=== PATIENT | female | born 1995 | race Caucasian/White ===

== ENCOUNTER → 2018-10-08 16:54 | Outpatient (CLI) | payer MEDICAID, SELFPAY | PROVIDERS: Visit Provider Nurse Practitioner Family | DX: R31.9 Hematuria, unspecified (principal) | CPT/HCPCS: 87086 ==

== ENCOUNTER → 2018-10-13 13:53 | Outpatient (CLI) | payer MEDICAID, SELFPAY ==
[2018-10-13 14:43] LABS: Basophils # 0.1 K/mm3 (0-0.2); Basophils % 1.1 % (0.1-2.0); Eosinophils # 0.3 K/mm3 (0.0-0.4); Eosinophils % 3.1 % (0.1-12.0); Hematocrit 43.2 % (37.0-47.0); Hemoglobin 14.6 g/dL (12.2-16.2); Lymphocytes % 37.4 % (10-50); Mean Corpuscular HGB Conc 33.7 g/dL (31.8-35.4); Mean Corpuscular Hemoglobin 28.1 pg (27.0-31.2); Mean Corpuscular Volume 83.4 fl (81-99); Mean Platelet Volume 7.6 fl (7.4-10.4); Monocytes # 0.6 K/mm3 (0.1-1.0); Monocytes % 7.3 % (1.7-9.3); Neutrophils # 4.1 K/mm3 (1.8-7.8); Neutrophils % 51.1 % (37.0-80.0); Platelet Count 263 K/mm3 (142-424); Red Blood Count 5.19 M/mm3 (4.20-5.40); Red Cell Distribution Width 13.8 % (11.5-17.5); White Blood Count 8.1 K/mm3 (4.8-10.8)
[2018-10-13 15:31] LABS: Alanine Aminotransferase 26 U/L (12-78); Albumin Level 3.6 gm/dL (3.4-5.0); Alkaline Phosphatase 72 U/L (46-116); Anion Gap 13.1 mEq/L (5-15); Aspartate Amino Transferase 16 U/L (15-37); Bilirubin,Total 0.2 mg/dL (0.2-1.0); Blood Urea Nitrogen 16 mg/dL (7-18); Calcium 9.3 mg/dL (8.5-10.1); Carbon Dioxide 29 mmol/L (21.0-32.0); Chloride 101 mmol/L (98-107); Chol/HDL Ratio 4.8 (1-3.5); Cholesterol 124 mg/dL (140-200); Creatinine,Serum 1.09 mg/dL (0.55-1.02); Estimated Glomerular Filt Rate 62 ml/min (>60); GFR (African American) 75 ML/MIN (>60); Globulin 3.6 gm/dl (1.3-3.2); Glucose 81 mg/dL (74-106); HDL Cholesterol 26 mg/dL (29-89); LDL Cholesterol 60 mg/dL (0-130); Potassium 4.1 mmoL/L (3.5-5.1); Sodium 139 mmol/L (136-145); T4 (Thyroxine) 10.2 ug/dl (4.7-13.3); Thyroid Stimulating Hormone 1.23 uIU/ml (0.358-3.740); Total Protein,Serum 7.2 gm/dL (6.4-8.2); Triglycerides 191 mg/dL (30-200); VLDL Cholesterol 38 mg/dL (0-40)
[2018-10-15 09:17] LABS: Hep A Ab, IgM Negative (Negative); Hepatitis B Core Antibody IgM Negative (Negative); Hepatitis B Surface Antigen Negative (Negative)
[2018-10-15 12:43] LABS: Hepatitis C Antibody <0.1 s/co ratio (0.0-0.9); Vitamin D 25 Hydroxy 27.4 ng/mL (30.0-100.0)
== END ==
PROVIDERS: Visit Provider Nurse Practitioner Family
DX: N39.0 Urinary tract infection, site not specified (principal); Z13.220 Encounter for screening for lipoid disorders; R53.1 Weakness; Z87.898 Personal history of other specified conditions; E66.9 Obesity, unspecified; E55.9 Vitamin D deficiency, unspecified
CPT/HCPCS: 36415; 80053; 80061; 80074; 82652; 84436; 84443; 85025

== ENCOUNTER 2018-10-23 10:54 | Outpatient (RCR) | payer MEDICAID, SELFPAY ==
--- NOTE | 2018-10-23 14:07 | HMH.OTOPEV ---
OT Inpatient Evaluation Rehab OT Outpatient Eval Start: 10/23/18 13:05 Freq: Status: Active Protocol: Document 10/23/18 13:06 TFRY (Rec: 10/23/18 14:06 TFRY [id number]) Electronically Signed By Mellisa Oneill, OT 10/23/18 13:06 Outpatient Therapy Subjective History Subjective History This is a 23 year old now left handed female who has wrist drop in right wrist. Patient reports that in December 2016 she fell sleep on her arm and when she woke up it it was a sleep . She reports that she waited till the next day and then went to the doctors. She reported that she went to and was there for 1 1/2 months and underwent [address] Eller at which time by patient report that he did a compartment syndrome release at which time he removed the muscles in her arm. She reports that she did not have therapy after as she did not have insurance. Chief Complaint Pain Symptom Type Numbness,Tingling Symptoms Relieved By Nothing Symptoms Aggravated By Physical Activity Prior Functional Limitations None Current Functional Limitations Lifting,Housework,Dressing, Sleeping Symptom Description Constant but Variable Level of pain today (0-10) 7 Pain scale - at its best (0-10) 5 Pain scale - at its worst (0-10) 10 Wrist/Hand Eval Palpation Tenderness/Visual Exam Wrist pain right tenderness wrist exam standard right thenar eminence atrophy hand/finger exam right standard Wrist Range of Motion Right Wrist Extension Active Range of Motion ( 0 degrees) Wrist Extension Passive Range of Motion WFL (degrees) Wrist Flexion Active Range of Motion ( 0 degrees) Wrist Flexion Passive Range of Motion ( WFL degrees) Wrist Radial Deviation Active Range of 0 Motion (degrees) Wrist Radial Deviation Passive Range of WFL Motion (degrees) Wrist Ulnar Deviation Active Range of 0 Motion (degrees) Wrist Ulnar Deviation Passive Range of WFL Motion (degrees) Forearm Supination Active Range of WFL Motion (degrees) Forearm Supination Passive R
== END 2018-10-23 10:59 | disposition home or self-care (01) ==
LOC: OT 10:54
PROVIDERS: Visit Provider Nurse Practitioner Family
DX: M21.331 Wrist drop, right wrist (principal)
CPT/HCPCS: 97165

== ENCOUNTER → 2018-10-23 12:35 | Outpatient (CLI) | payer MEDICAID, SELFPAY ==
--- NOTE | 2018-10-23 12:36 | XR_ITS ---
EXAM: XR cervical spine 4V HISTORY: ITS.REASON: neck pain ORDERING PHYSICIAN: Maurisio Perez APRN PATIENT AGE: 23 years COMPARISON: None FINDINGS: Normal alignment. No fracture or dislocation. No lytic or blastic change. No significant degenerative change. The disc spaces are preserved. There is slight reversal of the cervical lordosis which may be due to patient positioning or muscle spasm. Neural foramina are patent. No cervical rib IMPRESSION: Reversal lordosis otherwise negative
--- NOTE | 2018-10-23 12:36 | CT_ITS ---
CT head/brain wo con HISTORY: Severe headache ITS.REASON: headache ORDERING PHYSICIAN: Maurisio Perez APRN PATIENT AGE: 23 years COMPARISON: 03/02/2014 TECHNIQUE: Axial images obtained without contrast. Brain and bone windows reviewed. All CT scans at the facility use one or more dose reduction, viz: automated exposure control, ma/kV adjustment per patient size (including targeted exams where dose is matched to indication, i.e. head), or iterative reconstruction technique. FINDINGS: No midline shift, mass effect, intracranial hemorrhage, hydrocephalus, or extra-axial fluid collection is evident. The calvarium has an unremarkable appearance. No mastoid effusion. No sinus air-fluid levels.. IMPRESSION: Negative CT head without contrast. No acute finding
== END ==
PROVIDERS: PCP Nurse Practitioner Family; Visit Provider Nurse Practitioner Family
DX: G43.909 Migraine, unspecified, not intractable, without status migrainosus (principal); M54.2 Cervicalgia
CPT/HCPCS: 70450; 72050

== ENCOUNTER 2021-03-18 20:46 | Emergency (ER) | payer MEDICAID, SELFPAY ==
[2021-03-18 20:45] VITALS: BP 108/67; PULSE 95; RESP 14; TEMP 36.5; O2SAT 100; BMI 29.0
--- NOTE | 2021-03-18 22:13 | HMH.EDOD ---
ED Disposition Clinical Impression: Poisoning by opiate or related narcotic, Abnormal drug screen UTI (urinary tract infection) Qualifiers: Urinary tract infection type: site unspecified Hematuria presence: without hematuria Qualified Code(s): N39.0 - Urinary tract infection, site not specified Disposition: Home, Self-Care Condition on Discharge: Fair Instructions: DI for Drug Overdose in Adults Additional Instructions: use meds and call pcp for follow up and urine culture results - consider drug rehab Prescriptions: levoFLOXacin [Levaquin 500mg tab] 500 mg PO DAILY #7 tab Transmission Status: Pending to [facility] Referrals: Prudence Thompson [Primary Care Provider] - - Critical Care Critical Care Time: No Attestation: On 03/18/21, the high probability of a clinically significant, sudden or life threatening deterioration of the following system(s) required my full and direct attention, intervention and personal management. The time I documented below is in addition to time spent performing reported procedures but includes the following listed in this critical care notation. Medical Decision Making - Medical Records Medical records reviewed: Yes: I reviewed the patient's medical records. - Ivan Inquiry Pt receiving controlled substance: No Vital Signs: 03/18/21 20:45 Temperature 97.7 F Temperature Source Axillary Pulse Rate [Right] 95 H Respiratory Rate 14 Blood Pressure [Right Arm] 108/67 L Blood Pressure Mean [Right Arm] 80 Blood Pressure Source [Right Arm] Automatic Cuff 02 Sat by Pulse Oximetry 100 Oxygen Delivery Method Room Air - Lab Data Lab results reviewed: Yes: I reviewed the patient's lab results. Lab Results 03/18/21 21:49: Urine HCG, Qual Negative 03/18/21 21:49: Urine Opiates Screen Positive H, Urine Methadone Screen Negative, Ur Barbituates Screen Negative, Ur Phencyclidine Scrn Negative, Ur Amphetamines Screen Positive H, U Benzodiazepines Scrn Positive H, Urine Cocaine Screen Negative, U Marijuana (THC) Screen Negative 03/18/21 21:49: Urine Color Dk yellow, Urine Appearance Cloudy, Urine pH 5.5, Ur Specific [place] >= 1.030, Urine Protein 1+, Urine Glucose (UA) Negative, Urine Ketones Negative, Urine Blood 1+, Urine Nitrate Positive, Urine Bilirubin Negative, Urine Urobilinogen 0.2, Ur Leukocyte Esterase Negative, Urine RBC 3-5, Urine WBC 10-20, Ur Squamous Epith Cells Occasional, Urine Bacteria 3+ 03/18/21 23:00: WBC 10.5, RBC 4.73, Hgb 13.5, Hct 41.5, MCV 87.7, MCH 28.6, MCHC 32.6, RDW 12.9, Plt Count 187, MPV 7.9, Neut % (Auto) 69.9, Lymph % (Auto) 22.1, Wood % (Auto) 5.9, Eos % (Auto) 1.4, Baso % (Auto) 0.7, Neut # (Auto) 7.3, Lymph # (Auto) 2.3, Wood # (Auto) 0.6, Eos # (Auto) 0.2, Baso # (Auto) 0.1 03/18/21 23:00: Sodium 141, Potassium 3.5, Chloride 106, Carbon Dioxide 27, Anion Gap 11.5, BUN 11, Creatinine 0.90, Estimated Creat Clear 122, Estimated GFR 76, Est GFR ( Amer) 92, Glucose 81, Calcium 8.6, Total Bilirubin 0.3, AST 38 H, ALT 16, Alkaline Phosphatase 57, Total Protein 6.6, Albumin 3.7, Globulin 2.9, Albumin/Globulin Ratio 1.3, Salicylates < 1.0 L, Acetaminophen < 10 L 03/18/21 23:00: Plasma/Serum Alcohol < 10 Result diagrams: 03/18/21 23:00 03/18/21 23:00 Orders (Tests/Meds): ED MEDICATIONS Generic Name Dose Route Start Last Admin Trade Name Freq PRN Reason Stop Dose Admin Sodium Chloride 1,000 mls @ 999 mls/hr 03/18/21 23:00 03/18/21 23:04 Sod Chlor 0.9% 1000ml Bag IV 03/19/21 00:00 999 mls/hr .[id number] JOHN Administration ORDERS Category Date Time Status Urine Culture Stat Micro 03/18/21 21:49 Received - Radiology Data #1 Image(s): Chest Image Reviewed: Yes I have reviewed radiologist's interpretation Preliminary Findings: Normal/NAD - ECG Data Tracing #1 Normal Sinus Rhythm: Yes Ischemic changes: non-specific ST-T wave changes - Reevaluation(s) Time: 00:34 Reevaluation #1: improved after
--- NOTE | 2021-03-18 22:48 | ECG_ITS ---
APPROVED REPORT Exam: Resting ECG HR:55 bpm ECG Measurements Heart Rate 55 AXES NJ 144 P 73 QRSd 78 QRS 84 QT 456 T 84 QTc 436 Conclusion Sinus bradycardia with marked sinus arrhythmia Otherwise normal ECG Electronically signed by : Shawn King MD 03/21/2021 17:40:37
--- NOTE | 2021-03-18 22:48 | XR_ITS ---
PROCEDURE INFORMATION: Exam: XR Chest Exam date and time: 03/18/2021 10:48 PM Age: 25 years old Clinical indication: Shortness of breath and other: Lethargic; Additional info: Overdose TECHNIQUE: Imaging protocol: XR of the chest. Views: 1 view. COMPARISON: CR XR CHEST 2V 10/06/2019 6:12 AM FINDINGS: Airway: Patent Lungs: Low lung volumes causes crowding of the bronchovascular structures. No acute interstitial or airspace disease. Pleural spaces: Unremarkable. No pleural effusion. No pneumothorax. Heart/Mediastinum: Cardiomediastinal silhouette is magnified due to technique. Bones/joints: No acute skeletal abnormality or aggressive osseous lesion. IMPRESSION: Negative for acute thoracic pathology.
[2021-03-18 22:55] LABS: Microscopic, Urine URINE MICROSCOPIC (MICROSCOPIC)
[2021-03-18 22:57] LABS: Appearance,Urine CLOUDY (Clear); Bilirubin,Urine Negative (Negative); Blood, Urine 1+ (Negative); Color,Urine DK YELLOW (Yellow); Glucose,Urine (UA) Negative (Negative); Ketones,Urine Negative (Negative); Leukocyte Esterase,Urine Negative (Negative); Nitrate,Urine POSITIVE (Negative); PH,Urine 5.5 (5.0-8.5); Protein,Urine 1+ (Negative); Specific Gravity, Urine >= 1.030 (1.005-1.030); Urobilinogen,Urine 0.2 EU/dl (0.2)
[2021-03-18 23:00] LABS: Urine Pregnancy, HCG Qual. Negative (Negative)
[2021-03-18 23:07] LABS: Basophils # 0.1 K/mm3 (0-0.2); Basophils % 0.7 % (0.1-2.0); Eosinophils # 0.2 K/mm3 (0.0-0.4); Eosinophils % 1.4 % (0.1-12.0); Hematocrit 41.5 % (37.0-47.0); Hemoglobin 13.5 g/dL (12.2-16.2); Lymphocytes # 2.3 K/mm3 (0.7-4.5); Lymphocytes % 22.1 % (10-50); Mean Corpuscular HGB Conc 32.6 g/dL (31.8-35.4); Mean Corpuscular Hemoglobin 28.6 pg (27.0-31.2); Mean Corpuscular Volume 87.7 fl (81-99); Mean Platelet Volume 7.9 fl (7.4-10.4); Monocytes # 0.6 K/mm3 (0.1-1.0); Monocytes % 5.9 % (1.7-9.3); Neutrophils # 7.3 K/mm3 (1.8-7.8); Neutrophils % 69.9 % (37.0-80.0); Platelet Count 187 K/mm3 (142-424); Red Blood Count 4.73 M/mm3 (4.20-5.40); Red Cell Distribution Width 12.9 % (11.5-17.5); White Blood Count 10.5 K/mm3 (4.8-10.8)
[2021-03-18 23:08] LABS: Squamous Epithelial Cell,Urine Occasional #/hpf (0-5)
[2021-03-18 23:09] LABS: Bacteria,Urine 3+ /lpf
[2021-03-18 23:11] LABS: Barbiturates Screen,Urine Negative ng/ml (<200)
[2021-03-18 23:12] LABS: Benzodiazepines Screen,Urine Positive ng/ml (<200)
[2021-03-18 23:13] LABS: Cannabinoid Screen,Urine Negative ng/ml (<50); Cocaine Screen,Urine Negative ng/ml (<300)
[2021-03-18 23:14] LABS: Methadone Screen,Urine Negative ng/ml (<300)
[2021-03-18 23:15] LABS: Opiate Screen,Urine Positive ng/ml (<300); Phencyclidine Screen,Urine Negative ng/ml (<25)
[2021-03-18 23:17] LABS: Chloride 106 mmol/L (98-107); Sodium 141 mmol/L (136-145)
[2021-03-18 23:18] LABS: Potassium 3.5 mmoL/L (3.5-5.1)
[2021-03-18 23:20] LABS: Alanine Aminotransferase 16 U/L (12-78); Albumin Level 3.7 g/dl (3.5-5.0); Albumin/Globulin Ratio 1.3 (1.1-1.8); Alkaline Phosphatase 57 U/L (38-126); Anion Gap 11.5 mEq/L (5-15); Aspartate Amino Transferase 38 U/L (14-36); Bilirubin,Total 0.3 mg/dl (0.2-1.3); Blood Urea Nitrogen 11 mg/dl (7-17); Calcium 8.6 mg/dl (8.4-10.2); Carbon Dioxide 27 mmol/L (22.0-30.0); Creatinine Clearance Estimated 122 mL/min (50-200); Estimated Glomerular Filt Rate 76 ml/min (>60); GFR (African American) 92 ML/MIN (>60); Globulin 2.9 g/dL (1.3-3.2); Glucose 81 mg/dl (74-100); Total Protein,Serum 6.6 g/dl (6.3-8.2)
[2021-03-18 23:21] LABS: Acetaminophen < 10 ug/ml (10-30); Ethyl Alcohol < 10 mg/dl (0-10); Salicylate < 1.0 mg/dL (2.0-20.0)
[2021-03-18 23:27] LABS: Amphetamine/Metha Screen,Urine Positive ng/ml (<1000)
[2021-03-19 01:06] VITALS: BP 124/62; PULSE 58; RESP 14; TEMP 36.8; O2SAT 98
== END 2021-03-18 23:55 | disposition home or self-care (01) ==
PROVIDERS: Emergency Provider Emergency Medicine; PCP Emergency Medicine
DX: T40.1X1A Poisoning by heroin, accidental (unintentional), initial encounter (principal); T42.6X1A Poisoning by other antiepileptic and sedative-hypnotic drugs, accidental (unintentional), initial encounter; R55 Syncope and collapse; Y92.89 Other specified places as the place of occurrence of the external cause; F17.210 Nicotine dependence, cigarettes, uncomplicated; N39.0 Urinary tract infection, site not specified; R89.2 Abnormal level of other drugs, medicaments and biological substances in specimens from other organs, systems and tissues
CPT/HCPCS: 71045; 80053; 80305; 80329; 81001; 81025; 85025; 87086; 87088; 87186; 93005; 99284; J2310